=== PATIENT | female | born 1965 | race Caucasian/White ===

== ENCOUNTER 2018-02-22 15:38 | Emergency (ER) | payer OTHER ==
[~2018-02-22] VITALS: Ht 154.9 cm; Wt 43.1 kg
[~2018-02-22 15:38] MED LIST: CBC OIL; IBUPROFEN 800800 M1 PO; MOBIC7.5 MG PO; NORCO 5-325 TA1 EACH PO
[2018-02-22] MEDS ORDERED: TESSALON PERLE100 MG PO (16:11)
[2018-02-22] MEDS ORDERED: PREDNISONE 20 M20 MG PO (16:11)
[2018-02-22] MEDS ORDERED: CETIRIZINE HCL5 MG PO (16:11)
[2018-02-22 16:44] VITALS: BP 135/76
== END 2018-02-22 16:17 | disposition home or self-care (01) ==
LOC: ER 15:38
DX: J40 Bronchitis, not specified as acute or chronic (principal); F17.210 Nicotine dependence, cigarettes, uncomplicated; M19.90 Unspecified osteoarthritis, unspecified site; M81.0 Age-related osteoporosis without current pathological fracture; Z90.49 Acquired absence of other specified parts of digestive tract; Z88.8 Allergy status to other drugs, medicaments and biological substances; Z77.120 Contact with and (suspected) exposure to mold (toxic)

== ENCOUNTER 2018-03-08 13:45 | Emergency (ER) | payer OTHER ==
[~2018-03-08] VITALS: Ht 154.9 cm; Wt 43.1 kg
[~2018-03-08 13:45] MED LIST changes: +CETIRIZINE HCL5 MG PO; +PREDNISONE 20 M20 MG PO; +TESSALON PERLE100 MG PO
[2018-03-08 14:42] LABS: BASOPHILS 2.4 % (0.0-2.0); EOSINOPHILS 2.9 % (0.0-3.0); HEMATOCRIT 40.2 % (37.0-47.0); HEMOGLOBIN 13.9 gm/dL (12.0-15.0); MCHC 34.6 g/dL (28.0-37.0); MCV 95.3 fL (80.0-100.0); MONOCYTES 11.1 % (1.0-8.0); PLATELET COUNT 337 thou/uL (150-400); POLYS 50.6 % (36.0-66.0); RBC 4.22 mil/uL (4.20-5.00); RDW 14.3 % (10.5-14.5); WBC 5.8 thou/uL (4.0-11.0)
[2018-03-08 14:46] LABS: ANION GAP 12 mmol/L (7-16); BUN 17 mg/dL (7-18); CALCIUM 9.5 mg/dL (8.5-10.1); CHLORIDE 102 mmol/L (98-107); CO2 26 mmol/L (21-32); CREATININE 0.7 mg/dL (0.6-1.0); GLUCOSE 130 mg/dL (74-106); POTASSIUM 3.9 mmol/L (3.5-5.1); SODIUM 140 mmol/L (136-145)
[2018-03-08 14:51] LABS: DIRECT BILIRUBIN < 0.1 mg/dL (<0.1-0.3); SGOT 128 U/L (15-37); SGPT 136 U/L (30-65); TOTAL BILIRUBIN 0.2 mg/dL (<0.1-1.0); TOTAL PROTEIN 7.9 g/dL (6.4-8.2)
[2018-03-08] MEDS ORDERED: ZOFRAN ODT4 MG PO (16:35)
[2018-03-08] MEDS ORDERED: CHLORDIAZEPOXID25 M1 PO (16:35)
== END 2018-03-08 16:54 | disposition home or self-care (01) ==
LOC: ER 13:45
PROVIDERS: Emergency Medicine
DX: F10.239 Alcohol dependence with withdrawal, unspecified (principal); F17.210 Nicotine dependence, cigarettes, uncomplicated; M81.0 Age-related osteoporosis without current pathological fracture; M19.90 Unspecified osteoarthritis, unspecified site; Z90.49 Acquired absence of other specified parts of digestive tract; Z88.8 Allergy status to other drugs, medicaments and biological substances; Y90.0 Blood alcohol level of less than 20 mg/100 ml

== ENCOUNTER 2018-06-24 23:40 | Emergency (ER) | payer OTHER ==
[~2018-06-24] VITALS: Ht 154.9 cm; Wt 45.4 kg
[~2018-06-24 23:40] MED LIST changes: +CHLORDIAZEPOXID25 M1 PO; +ZOFRAN ODT4 MG PO
--- NOTE | 2018-06-24 23:59 | EKG ---
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 : 1965 Requested By: Ace Nieves Order Number: [id number] MD: Channing Mccann Measurements Intervals [place] Rate: 84 P: 66 [place]: 156 QRS: -57 QRSD: 92 T: 57 QT: 396 QTc: 469 Interpretive Statements Sinus rhythm Left anterior fascicular block Poor R-wave progression Nonspecific ST/T abnormalities No previous ECG available for comparison Electronically Signed On 06-24-2018 23:59:20 [employer]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
[2018-06-25 00:17] LABS: HEMATOCRIT 43.8 % (37.0-47.0); MCH 32.7 pg (26.0-34.0); MCHC 34.1 g/dL (28.0-37.0); MCV 95.9 fL (80.0-100.0); RBC 4.57 mil/uL (4.20-5.00); RDW 14.6 % (10.5-14.5); WBC 6.3 thou/uL (4.0-11.0)
[2018-06-25 00:44] LABS: CALCIUM 9.2 mg/dL (8.5-10.1); CREATININE 0.7 mg/dL (0.6-1.0); POTASSIUM 3.2 mmol/L (3.5-5.1)
[2018-06-25 00:50] LABS: ALBUMIN 4.1 g/dL (3.4-5.0); TOTAL BILIRUBIN 0.4 mg/dL (<0.1-1.0); TOTAL PROTEIN 7.7 g/dL (6.4-8.2)
[2018-06-25 01:29] LABS: URINE BILIRUBIN NEGATIVE (Negative); URINE BLOOD NEGATIVE (Negative); URINE CLARITY CLEAR; URINE COLOR YELLOW; URINE GLUCOSE-RANDOM* NEGATIVE (Negative); URINE KETONES NEGATIVE (Negative); URINE LEUKOCYTES-REFLEX NEGATIVE (Negative); URINE NITRITE-REFLEX NEGATIVE (Negative); URINE PROTEIN (DIPSTICK) NEGATIVE (Negative); URINE UROBILINOGEN 0.2 E.U./dl (0.2-1.0)
[2018-06-25] MEDS ORDERED: CHLORDIAZEPOXID10 MG PO (01:39)
[2018-06-25] MEDS ORDERED: PEPCID40 MG PO (01:39)
[2018-06-25] MEDS ORDERED: ONDANSETRON HCL4 M2 PO (01:39)
[2018-06-25 02:22] VITALS: BP 122/78
== END 2018-06-25 02:24 | disposition home or self-care (01) ==
LOC: ER 23:40
PROVIDERS: Emergency Medicine
DX: K70.10 Alcoholic hepatitis without ascites (principal); R11.2 Nausea with vomiting, unspecified; F17.210 Nicotine dependence, cigarettes, uncomplicated; M81.0 Age-related osteoporosis without current pathological fracture; M19.90 Unspecified osteoarthritis, unspecified site; Z90.49 Acquired absence of other specified parts of digestive tract; Z88.8 Allergy status to other drugs, medicaments and biological substances

== ENCOUNTER 2018-10-10 17:50 | Inpatient (IN) | payer OTHER ==
[~2018-10-10] VITALS: Ht 154.9 cm; Wt 42.4 kg
[~2018-10-10 17:50] MED LIST changes: +CHLORDIAZEPOXID10 MG PO; +ONDANSETRON HCL4 M2 PO; +PEPCID40 MG PO
[2018-10-10 17:52] VITALS: BP 147/110
[2018-10-10 18:53] LABS: URINE BILIRUBIN NEGATIVE (Negative); URINE BLOOD 3+ (Negative); URINE CLARITY CLEAR; URINE COLOR YELLOW; URINE GLUCOSE-RANDOM* NEGATIVE (Negative); URINE KETONES NEGATIVE (Negative); URINE NITRITE-REFLEX NEGATIVE (Negative); URINE PROTEIN (DIPSTICK) 1+ (Negative); URINE SPECIFIC GRAVITY 1.015 (1.005-1.035)
[2018-10-10 18:54] LABS: URINE LEUKOCYTES-REFLEX 1+ (Negative)
[2018-10-10 18:56] LABS: ABSOLUTE NEUTROPHILS 2.3 thou/uL (1.4-8.2); BASOPHILS 0.9 % (0.0-2.0); EOSINOPHILS 2.1 % (0.0-3.0); HEMATOCRIT 45.2 % (37.0-47.0); HEMOGLOBIN 15.8 gm/dL (12.0-15.0); LYMPHOCYTES 40.6 % (24.0-44.0); MCH 33.6 pg (26.0-34.0); MCHC 34.9 g/dL (28.0-37.0); MCV 96.4 fL (80.0-100.0); MONOCYTES 11.1 % (1.0-8.0); PLATELET COUNT 257 thou/uL (150-400); POLYS 45.3 % (36.0-66.0); RBC 4.69 mil/uL (4.20-5.00); RDW 14.3 % (10.5-14.5)
[2018-10-10 19:02] LABS: AMP/METHAMP POSITIVE (Negative); BARBITURATES Negative (Negative); BENZODIAZEPINES Negative (Negative); COCAINE Negative (Negative); METHADONE Negative (Negative); OPIATES Negative (Negative); PCP Negative (Negative)
[2018-10-10 19:03] LABS: CALCIUM 9.5 mg/dL (8.5-10.1); CREATININE 0.8 mg/dL (0.6-1.0); POTASSIUM 3.5 mmol/L (3.5-5.1)
[2018-10-10 19:03] LABS: AMORPHOUS PHOSPHATES Many /LPF (None Seen); BACTERIA-REFLEX >30 Many /HPF (None Seen); CASTS None Seen /LPF (None Seen); SQUAMOUS 0-3 Few /LPF (0-3); URINE RBC 3-10 Few /HPF (0-2); URINE WBC-REFLEX >25 Many /HPF (0-5)
[2018-10-10 19:06] LABS: SALICYLATE 5.8 mg/dL (2.8-20.0)
[2018-10-10 19:10] LABS: ALBUMIN 4.3 g/dL (3.4-5.0); TOTAL BILIRUBIN 0.7 mg/dL (<0.1-1.0); TOTAL PROTEIN 8.2 g/dL (6.4-8.2)
[2018-10-10 20:57] VITALS: BP 128/95
[2018-10-10 21:07] VITALS: BP 128/95
[2018-10-10 21:51] VITALS: BP 128/95
[2018-10-10 22:02] VITALS: BP 134/94
[2018-10-10 23:15] LABS: PHOSPHORUS 3.3 mg/dL (2.5-4.9)
[2018-10-10 23:42] LABS: FOLIC ACID 3.4 ng/mL (8.6-58.9)
[2018-10-11 04:28] LABS: HEMATOCRIT 39.7 % (37.0-47.0); MCH 33.6 pg (26.0-34.0); MCHC 34.6 g/dL (28.0-37.0); RBC 4.09 mil/uL (4.20-5.00); RDW 14.1 % (10.5-14.5); WBC 5.8 thou/uL (4.0-11.0)
[2018-10-11 04:32] LABS: HEMOGLOBIN 13.7 gm/dL (12.0-15.0)
[2018-10-11 04:40] LABS: CALCIUM 8.5 mg/dL (8.5-10.1); CREATININE 0.8 mg/dL (0.6-1.0); POTASSIUM 3.5 mmol/L (3.5-5.1)
[2018-10-11 05:15] VITALS: BP 127/83
[2018-10-11 07:33] VITALS: BP 123/71
--- NOTE | 2018-10-11 09:19 | EKG ---
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 : 1965 Requested By: Ace Nieves Order Number: [id number] MD: Jesse Jaramillo Measurements Intervals [place] Rate: 106 P: 81 [place]: 156 QRS: -75 QRSD: 84 T: 67 QT: 379 QTc: 504 Interpretive Statements Sinus tachycardia Left anterior fascicular block Abnormal R-wave progression, late transition Borderline T abnormalities, anterior leads Borderline prolonged QT interval Compared to ECG 06/24/2018 23:54:27 QT interval has lengthened Electronically Signed On 10-11-2018 9:19:26 CDT by Jesse Jaramillo [email or web address] ��������������������������������������������� <ELECTRONICALLY SIGNED> ���������������������������������������� By: Jesse Jaramillo MD, [facility] ��������������������������������������������� 10/11/18 0919 1824 1824 Jesse Jaramillo MD, [facility] /EPI
[2018-10-11 12:26] VITALS: BP 125/87
[2018-10-11 15:56] VITALS: BP 122/95
[2018-10-11] MEDS ORDERED: KEFLEX500 M1 PO (18:38)
[2018-10-11] MEDS ORDERED: VITAMIN B-1100 M2 PO (18:40)
[2018-10-11 18:49] VITALS: BP 122/95
== END 2018-10-11 19:34 | disposition home or self-care (01) | DRG 690 ==
LOC: ER 17:50 → EROBS 19:26 → 2N 21:51
PROVIDERS: Emergency Medicine; Nurse Practitioner Family; ADMIT Hospitalist
DX: N39.0 Urinary tract infection, site not specified (principal); R45.851 Suicidal ideations; M81.0 Age-related osteoporosis without current pathological fracture; M19.90 Unspecified osteoarthritis, unspecified site; F12.90 Cannabis use, unspecified, uncomplicated; F10.129 Alcohol abuse with intoxication, unspecified; F41.9 Anxiety disorder, unspecified; Z71.6 Tobacco abuse counseling; F43.20 Adjustment disorder, unspecified; Z90.49 Acquired absence of other specified parts of digestive tract; Z88.8 Allergy status to other drugs, medicaments and biological substances; Z79.899 Other long term (current) drug therapy
CPT/HCPCS: 10797

== ENCOUNTER 2018-10-28 06:32 | Emergency (ER) | payer OTHER ==
[~2018-10-28] VITALS: Ht 154.9 cm; Wt 40.8 kg
[~2018-10-28 06:32] MED LIST changes: +KEFLEX500 M1 PO; +VITAMIN B-1100 M2 PO
[2018-10-28 07:02] LABS: ABSOLUTE NEUTROPHILS 3.4 thou/uL (1.4-8.2); BASOPHILS 1.4 % (0.0-2.0); EOSINOPHILS 0.7 % (0.0-3.0); HEMATOCRIT 42.4 % (37.0-47.0); HEMOGLOBIN 14.8 gm/dL (12.0-15.0); LYMPHOCYTES 33.1 % (24.0-44.0); MCH 33.5 pg (26.0-34.0); MCHC 34.8 g/dL (28.0-37.0); MCV 96.1 fL (80.0-100.0); MONOCYTES 11.7 % (1.0-8.0); PLATELET COUNT 247 thou/uL (150-400); POLYS 53.1 % (36.0-66.0); RBC 4.41 mil/uL (4.20-5.00); RDW 14.7 % (10.5-14.5); WBC 6.4 thou/uL (4.0-11.0)
[2018-10-28 07:10] LABS: URINE BILIRUBIN NEGATIVE (Negative); URINE BLOOD 2+ (Negative); URINE CLARITY CLOUDY; URINE COLOR YELLOW; URINE GLUCOSE-RANDOM* NEGATIVE (Negative); URINE KETONES NEGATIVE (Negative); URINE LEUKOCYTES-REFLEX NEGATIVE (Negative); URINE NITRITE-REFLEX NEGATIVE (Negative); URINE PROTEIN (DIPSTICK) NEGATIVE (Negative); URINE UROBILINOGEN 0.2 E.U./dl (0.2-1.0)
[2018-10-28 07:17] LABS: ALBUMIN 4.2 g/dL (3.4-5.0); CREATININE 0.8 mg/dL (0.6-1.0); TOTAL BILIRUBIN 0.5 mg/dL (<0.1-1.0)
[2018-10-28 07:19] LABS: POTASSIUM 2.8 mmol/L (3.5-5.1)
[2018-10-28 07:21] LABS: SQUAMOUS 0-3 Few /LPF (0-3)
[2018-10-28 07:22] LABS: AMORPHOUS URATES Moderate /LPF (None Seen); BACTERIA-REFLEX 1-9 Few /HPF (None Seen); CASTS None Seen /LPF (None Seen); URINE RBC 0-2 Rare /HPF (0-2); URINE WBC-REFLEX None Seen /HPF (0-5)
[2018-10-28 08:01] VITALS: BP 129/90
--- NOTE | 2018-10-29 09:14 | EKG ---
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1965 Requested By: Moreno Pham Order Number: [id number] MD: Jesse Jaramillo Measurements Intervals [place] Rate: 107 P: 83 [place]: 175 QRS: -65 QRSD: 85 T: 63 QT: 362 QTc: 483 Interpretive Statements Sinus tachycardia Ventricular premature complex Left anterior fascicular block Borderline T abnormalities, anterior leads Compared to ECG 10/10/2018 18:24:33 Ventricular premature complex(es) now present Electronically Signed On 10-29-2018 9:14:02 CDT by Jesse Jaramillo [email or web address] ��������������������������������������������� <ELECTRONICALLY SIGNED> ���������������������������������������� By: Jesse Jaramillo MD, [facility] ��������������������������������������������� 10/29/18 09 2 2 Jesse Jaramillo MD, [facility] /EPI
== END 2018-10-28 08:15 | disposition home or self-care (01) ==
LOC: ER 06:32
PROVIDERS: Emergency Medicine
DX: R10.31 Right lower quadrant pain (principal); E87.6 Hypokalemia; E83.42 Hypomagnesemia; F15.10 Other stimulant abuse, uncomplicated; F10.10 Alcohol abuse, uncomplicated; M19.90 Unspecified osteoarthritis, unspecified site; Z90.49 Acquired absence of other specified parts of digestive tract; F17.210 Nicotine dependence, cigarettes, uncomplicated; Z88.8 Allergy status to other drugs, medicaments and biological substances